=== PATIENT | female | born 1950 | race Caucasian/White ===

== ENCOUNTER 2018-11-04 09:28 | Day surgery (SDC) | payer MEDICARE, OTHER ==
[2018-10-24 18:01] VITALS: BMI 23.2
[~2018-11-04] VITALS: Ht 152.4 cm; Wt 56.9 kg
[~2018-11-04 09:28] MED LIST: ADV25050 INHALATION; ALBU8.5H8 INH; ASPI81TA52 PO; DOCU250C68 PO; FLUO40CA PO; MAGN500C PO; MULT-853 PO; OMEP20CA16 PO; ONDA4TAB13 PO; OXYC60TA9 PO; POLY17PO6 PO; RANI150T5 PO; RIZA10TA21 PO; TRA100 PO; UBID100C24 PO
[2018-11-04] MEDS ORDERED: LACTATED RINGER'S 1,000 ML IV SCH (10:30)
[2018-11-04 10:31] VITALS: Ht 152.4 cm; Wt 56.9 kg
[2018-11-04 10:32] VITALS: BP 140/82; PULSE 90; RESP 16
[2018-11-04] MEDS ORDERED: ROPIVACAINE 0.5 % 30 ML VIAL ONE ×2 (11:32→13:21)
[2018-11-04] MEDS ORDERED: PROPOFOL 200 MG INJ ONE (12:30)
[2018-11-04] MEDS ORDERED: SEVOFLURANE 15 MIN ONE (12:30)
[2018-11-04] MEDS ORDERED: LIDOCAINE 2% (SDV) 5 ML INJ ONE (12:30)
[2018-11-04] MEDS ORDERED: CEFAZOLIN 1 GM INJ ONE (12:30)
[2018-11-04] MEDS ORDERED: PROVENTIL HFA 6.7GM INHALER ONE (12:30)
[2018-11-04] MEDS ORDERED: EPHEDrine 25 MG/5 ML SYG ONE (12:30)
[2018-11-04] MEDS ORDERED: PHENYLephrine (100 MCG/ML) 10ML SYG ONE (12:30)
[2018-11-04] MEDS ORDERED: ONDANSETRON 4 MG INJ ONE (12:35)
[2018-11-04] MEDS ORDERED: DEXAMETHASONE 4 MG/ML 5 ML INJ ONE (12:35)
[2018-11-04] MEDS ORDERED: MIDAZOLAM 1 MG/ML 2 ML INJ ONE (12:35)
[2018-11-04] MEDS ORDERED: SUCCINYLCHOLINE CHLORIDE 100 MG/5 ML SYG IV ONE (12:35)
[2018-11-04] MEDS ORDERED: ROCURONIUM 50 MG INJ ONE (12:35)
[2018-11-04] MEDS ORDERED: METHYLENE BLUE 50 MG/10 ML AMPUL ONE (13:22)
[2018-11-04] MEDS ORDERED: POLYMYXIN/BACITRACIN 1L IRRIG ONE (13:22)
[2018-11-04] MEDS ORDERED: hydrALAzine 20 MG INJ IV PRN (13:30)
[2018-11-04] MEDS ORDERED: DIPHENHYDRAMINE 50 MG INJ IV PRN (13:30)
[2018-11-04] MEDS ORDERED: HYDROmorphONE 1 MG/5 ML IV SYRINGE IV PRN ×2 (13:30)
[2018-11-04] MEDS ORDERED: MEPERIDINE 25 MG INJ IV PRN (13:30)
[2018-11-04] MEDS ORDERED: OXYCODONE/ACETAMINOPHEN (5/325) TAB PO PRN ×3 (13:30→15:30)
[2018-11-04] MEDS ORDERED: MIDAZOLAM 1 MG/ML 2 ML INJ IV PRN (13:30)
[2018-11-04] MEDS ORDERED: EPHEDrine 25 MG/5 ML SYG IV PRN (13:30)
[2018-11-04] MEDS ORDERED: ONDANSETRON 4 MG INJ IV PRN ×2 (13:30→15:30)
[2018-11-04] MEDS ORDERED: LABETALOL HCL 20MG INJ IV PRN (13:30)
[2018-11-04] MEDS ORDERED: NEOMYC/POLYMYX/BACIT 30 GM OINT ONE (14:36)
[2018-11-04] MEDS ORDERED: KETOROLAC 30 MG INJ ONE (14:42)
[2018-11-04] MEDS ORDERED: SUGAMMADEX SODIUM 200 MG/2 ML VIAL IV ONE (14:42)
[2018-11-04] MEDS ORDERED: SOD CHLORIDE 0.9% 1,000 ML IV SCH (15:05)
[2018-11-04 15:06] VITALS: BP 115/56; PULSE 91; RESP 17
[2018-11-04] MEDS: FENTAnyl 50 MCG/ML VIAL IV PRN ×2 (15:25→15:50)
[2018-11-04] MEDS ORDERED: morphine 2 MG INJ IV PRN (15:30)
[2018-11-04 16:42] VITALS: BP 123/65; PULSE 90; RESP 18
== END 2018-11-04 17:45 | disposition home or self-care (01) ==
LOC: SDS 09:28
PROVIDERS: ATTEND Orthopaedic Surgery
DX: M19.072 Primary osteoarthritis, left ankle and foot (principal); M20.12 Hallux valgus (acquired), left foot; I10 Essential (primary) hypertension
CPT/HCPCS: 28750; 73630; C1713; J0690; J1100; J1885; J2250; J2370; J2405; J2795; J3010; Q9968